=== PATIENT | female | born 1935 | race Caucasian/White ===

== ENCOUNTER 2019-01-15 09:46 | Observation (INO) | payer OTHER ==
[~2019-01-15] VITALS: Ht 147.3 cm; Wt 48.1 kg
--- NOTE | 2019-01-15 10:18 | NUR ---
PT. BIBA, C/O S/P FALL LAST NIGHT, [facility] STATES PT. WAS UP LAST NIGHT USING HER WALKER AND TRIPPED OVER IT, FELL ON THE FLOOR, LEFT SIDE, ECCHYMOSIS NOTED ON LEFT UPPER EXTREMITY, NO LOC, NO HEAD TRAUMA NOTED, PT. STATES SHE DOES NOT TAKE ANY BLOOD THINNERS, AAOX4, NO ACUTE DISTRESS NOTED, 6 BACK PAIN, PT. STATES SHE HAS CHRONIC BACK & TAKES TRAMADOL FOR THE BACK PAIN, SON AT BEDSIDE ON INTERNATIONAL ORGANIZER, PULSE OX, PLACED IN GOWN, CHANGED BRIEF, WILL MONITOR PENDING DR. SANTAMARIA
--- NOTE | 2019-01-15 10:30 | NUR ---
PT SON AT BEDSIDE.
--- NOTE | 2019-01-15 10:40 | NUR ---
MSE COMPLETED BY DANILO CAREY. AWAITING FURTHER ORDERS
--- NOTE | 2019-01-15 11:00 | NUR ---
PORTABLE CXR AT BEDSIDE.
--- NOTE | 2019-01-15 11:08 | NUR ---
PT TO CT VIA CAMPOS
[2019-01-15 11:26] LABS: BASOPHIL % 0.3 % (0-2); PLATELET COUNT 388 x10^3mcL (130-400)
[2019-01-15 11:34] LABS: CARBON DIOXIDE 33.1 mmol/L (21-32); CHLORIDE SERUM 97 mmol/L (98-107); CREATININE SERUM 1.1 mg/dL (0.6-1.0); GLUCOSE SERUM 114 mg/dL (74-106); POTASSIUM SERUM 3.9 mmol/L (3.5-5.1); SODIUM SERUM 138 mmol/L (136-145)
[2019-01-15 11:36] LABS: RED CELL DISTRIBUTION WIDTH 15.4 % (11.5-14.5)
[2019-01-15 11:39] LABS: ALKALINE PHOSPHATASE 140 U/L (46-116); ALT/SGPT 25 U/L (14-59); AST/SGOT 45 U/L (15-37); BILIRUBIN TOTAL 0.35 mg/dL (0.20-1.00); TOTAL PROTEIN, SERUM 7.7 g/dL (6.4-8.2)
[2019-01-15 11:40] LABS: ALBUMIN 2.9 g/dL (3.4-5.0); CHOLESTEROL 204 mg/dL (<200)
--- NOTE | 2019-01-15 11:43 | NUR ---
MADE PT. AWARE THAT A URINE SAMPLE IS TO BE COLLECTED PER ORDER, INSTRUCTED PT. TO CALL ME
--- NOTE | 2019-01-15 12:32 | NUR ---
FLUIDS RUNNING PER DR. ARMSTRONG, PT. TOLERATING WELL, SEE EMAR
--- NOTE | 2019-01-15 12:33 | NUR ---
PT. LAYING IN BED, AAOX4, NO ACUTE DISTRESS NOTED, 10/02 "LEFT SIDE" DR. GONZALEZ AWARE, SON AT BEDSIDE, WILL MONITOR, PENDING URINE SAMPLE,
--- NOTE | 2019-01-15 12:49 | NUR ---
DR. RIOS MADE AWARE OF PT. ELEVATED BP, NEW ORDER RECEIVED FOR MEDICATION (BP) PT. STATES SHE DOES NOT TAKE ANY BP MEDS
--- NOTE | 2019-01-15 13:17 | NUR ---
PT AWAKE, ALERT LAYING IN GURNEY. CATHETER IS IN PLACE, NO URINE AT THIS TIME. PT COMPLAINING OF BACK PAIN. PT IS COMFORTABLE, NAD NOTED, PT IS ON THE HOGSHEAD BUILDER, SON AT THE BEDSIDE, AND SIDE RAILS ARE UP.
[2019-01-15 13:24] LABS: CHOLESTEROL/HDL RATIO 2.1
--- NOTE | 2019-01-15 14:17 | NUR ---
PT OOB FOR ROAD TESTING +GENERALIZED WEAKNESS WITH -DIZZINESS
[2019-01-15 14:20] LABS: AMPHETAMINE QUAL UR NONE DETECTED (See below)
--- NOTE | 2019-01-15 14:25 | NUR ---
REPORT GIVEN TO TITO MCCANN RESUMING CARE OF PT IN TELE FLOOR
--- NOTE | 2019-01-15 14:39 | NUR ---
PT TO TELE FLOOR VIA GURNEY ON PORTABLE CM IN NO DISTRESS A&OX4 SON ACCOMPANIED PT CHRISTEL MCCANN AND [facility] TRANSPORTING PT, TITO MCCANN RESUMING CARE
[2019-01-15 15:55] VITALS: BP 151/45
--- NOTE | 2019-01-15 15:58 | NUR ---
RECEIVED PT FROM ED VIA DEVI. ORIENTED PT TO ROOM AND SURROUNDINGS. IV NOTED TO RFA PTAENT AND INTACT. INSTRUCTED PT ON THE USE OF CALL LIGHT FOR ASSISTANCE. ENDORSED PT TO PRIMARY NURSE TITO
--- NOTE | 2019-01-15 16:10 | NUR ---
PT AMBULATING IN HALLWAY WITH PHYSICAL THERAPY VIA WALKER AND GAIT BELT, NO RESPRIATORY DISTRESS NOTED.
--- NOTE | 2019-01-15 16:33 | NUR ---
PT PLACED ON TELE 24, NSR HR 71.
[2019-01-15 16:34] VITALS: BP 146/68
--- NOTE | 2019-01-15 16:43 | NUR ---
PER SON, PT HAD SKIN GRAFT TO LLE AND IT IS NOT TO BE TOUCHED.
--- NOTE | 2019-01-15 16:59 | NUR ---
PT VOIDED IN BED, PT ADMITS TO BEING INCONTINENT AT TIMES, LINENS CHANGED, NO RESPRIATORY DISTRESS NOTED, CALL LIGHT WITHIN REACH.
--- NOTE | 2019-01-15 18:36 | NUR ---
PT TOLERATING CARDIAC DIET WELL, NO RESPRIATORY DISTRESS NOTED, DENIES PAIN, VOIDED, LINENS CHANGED, CALL LIGHT WITHIN REACH. DAUGHTER CHET AT BEDSIDE UPDATED ON PT CONDITION.
--- NOTE | 2019-01-15 19:18 | NUR ---
ENDORSED CARE TO EGNARO MCCANN.
--- NOTE | 2019-01-15 20:00 | NUR ---
RECEIVED PT IN BED, RESTING QUIETLY. ALERT AND ORIENTED. DENIES DIZZINESS/HEADACHE. RESP. EVEN AND UNLABORED. LUNG SOUNDS CLEAR BILAT. ON ROOM AIR, NO ACUTE DISTRESS NOTED. SR ON THE MONITOR, DENIES CHEST PAIN OR ANY DISCOMFORT AT THIS TIME. IVF, D5NS AT 80ML/HR, INTACT AND INFUSING VIA RFA, SITE CLEAR. DRESSING TO LLE, DRY AND INTACT. BRUISES TO BUE . ASSISTED WITH HS CARE. CALL LIGHT WITHIN REACH, INSTRUCTED TO CALL FOR ASSIST. IF NEEDED. PT. VERBALIZED UNDERSTANDING. WILL CONTINUE TO MONITOR.
[2019-01-15 22:26] VITALS: BP 155/75
--- NOTE | 2019-01-16 00:49 | NUR ---
RESTING QUIETLY IN BED WITH EYES CLOSED, APPEARS ASLEEP, EASILY AROUSABLE. RESP. EVEN AND UNLABORED. ON ROOM AIR , NO ACUTE DISTRESS NOTED. CALL LIGHT WITHIN REACH. WILL CONTINUE TO MONITOR.
[2019-01-16 05:45] VITALS: BP 172/74
--- NOTE | 2019-01-16 06:08 | NUR ---
AFEBRILE AND VITAL SIGNS STABLE. RESP. EVEN AND UNLABORED.NO ACUTE DISTRESS NOTED. IVF INTACT AND INFUSING WELL, SITE CLEAR. INCONT. OF URINE, CLEANED AND KEPT COMFORTABLE. NO COMPLAINTS NOTED AT THIS TIME. SAFETY MAINTAINED. WILL CONTINUE TO MONITOR.
[2019-01-16 07:00] LABS: BASOPHIL % 0.1 % (0-2); PLATELET COUNT 390 x10^3mcL (130-400)
[2019-01-16 07:03] LABS: CALCIUM 10.1 mg/dL (8.5-10.1); CARBON DIOXIDE 31.3 mmol/L (21-32); CHLORIDE SERUM 99 mmol/L (98-107); CREATININE SERUM 0.9 mg/dL (0.6-1.0); GLUCOSE SERUM 97 mg/dL (74-106); POTASSIUM SERUM 3.3 mmol/L (3.5-5.1); SODIUM SERUM 140 mmol/L (136-145)
[2019-01-16 07:29] LABS: RED CELL DISTRIBUTION WIDTH 15.4 % (11.5-14.5)
[2019-01-16 08:05] VITALS: BP 187/90
--- NOTE | 2019-01-16 08:48 | NUR ---
B/P 187/90 (113), HR 68, ROUTINE NORVASC 5 MG PO GIVEN. CHANO MUTAC, LOG CARRIER OPERATOR MADE AWARE. DUE MEDS GIVEN AND TOLERATED WELL. EXTRA FLUIDS GIVEN. RESP EVEN AND UNLABORED. NO DISTRESS NOTED. DENIES PAIN AT THIS TIME. CALL LIGTH WITHIN REACH.
[2019-01-16] MEDS ORDERED: NOR5 PO (10:09)
[2019-01-16] MEDS ORDERED: LISINOPRIL10 MG PO (10:10)
--- NOTE | 2019-01-16 10:21 | NUR ---
REPORTED TO CHANO SHEPHERD NP THAT PT'S B/P IS REMAINING HIGH AT 185/73. CHANO STATED A NEW B/P MED HAS BEEN ORDERED. PT MADE AWARE.
[2019-01-16 12:41] VITALS: BP 150/87
[2019-01-16 13:21] VITALS: BP 150/87
--- NOTE | 2019-01-16 13:58 | NUR ---
STRAIGHT CATH PT AND OBTAINED 100 ML URINE SAMPLE. PT TOLERATED PROCEDURE WELL. BED IN LOWEST POSTION. CALL LIGHT WITHIN REACH.
[2019-01-16 14:15] LABS: microscopic required? NO
[2019-01-16 14:22] LABS: urine erythrocyte NEGATIVE (NEGATIVE)
--- NOTE | 2019-01-16 14:22 | NUR ---
IVF CHANGED. PT SLEEPING BUT EASILY AROUSABLE. NO DISTRESS NOTED. PT IS CONFUSED AT THIS TIME. CHANO SHEPHERD, DANCE HALL HOST/HOSTESS MADE AWARE. DAUGHTER AT BEDSIDE. CALL LIGHT WITHIN REACH.
--- NOTE | 2019-01-16 14:43 | NUR ---
PER DR. STEVENS TUBE FEEDING RESUMES WITH GLUCERNA 1.2 AT 5OML/HR, WATER FLUSH OF 100ML/HR Q 6 HOURS. HOB AT 45 DEGREES. AUSCULTATED AND CONFIRMED PLACEMENT. RESIDUAL AT 10ML AT THIS TIME.
--- NOTE | 2019-01-16 16:40 | NUR ---
PHYSICAL THERAPY DAILY NOTES CO-SIGN All documentation done by the Marketing Systems Manager for 01/16/19 has been reviewed. I agree with the documentation. Reviewed/Co-Signed by: Jody Soto PT Documentation Done by:ANASTASIIA GODINEZ CABLE MACHINE OPERATOR PROGRESSING W/ GAIT ENDURANCE; WILL BENEFIT W/ P.T. POST ACUTE STAY.
[2019-01-16 16:54] VITALS: BP 165/77
[2019-01-16] MEDS ORDERED: ARICEPT5 MG PO (16:57)
--- NOTE | 2019-01-16 18:47 | NUR ---
PT DISCHARGED TO HOME IN NO DISTRESS. DISCHARGE INSTRUCTIONS REVIEWED, ALL FORMS SIGNED. RX GIVEN TO PT. TELE 24 REMOVED FROM PT AND RETURNED TO TELEMONITOR. IV CATH TO RFA REMOVED INTACT. SITE WNL COVERED WITH GAUZE AND BANDAID. VS: 98.2F, 78, 20, 165/77, 95% ON R/A. PT DENIES PAIN AT TIME OF DISCHARGED. ALL PERSONAL BELONGINGS TAKEN HOME.
--- NOTE | 2019-01-17 07:19 | NUR ---
ECHOCARDIOGRAM NOT DONE-DISCHARGED
[2019-01-18 08:54] VITALS: Ht 147.3 cm; Wt 48.1 kg
== END 2019-01-16 20:03 | disposition home or self-care (01) | DRG 641 ==
LOC: ED 09:46 → DU 13:44
PROVIDERS: Emergency Medicine; ADMIT General Practice
DX: E86.0 Dehydration (principal); Z68.1 Body mass index [BMI] 19.9 or less, adult; I16.0 Hypertensive urgency; R42 Dizziness and giddiness; R41.82 Altered mental status, unspecified; I73.9 Peripheral vascular disease, unspecified; Z98.62 Peripheral vascular angioplasty status; Z22.322 Carrier or suspected carrier of Methicillin resistant Staphylococcus aureus
CPT/HCPCS: 97116-GP; 97530-GP; C9113; G0378; G0480; Q0092